=== PATIENT | female | born 1990 | race Caucasian/White ===

== ENCOUNTER 2022-03-30 11:35 | Outpatient (CLI) | payer OTHER, SELFPAY ==
--- NOTE | 2022-03-30 15:21 | PC.NURSE ---
In- 1135 Out- 1338 Reason for visit: Latch issues History: mother delivered at [facility] in [place] on 03-24-2024. She states she was an induction for high blood pressure and the vaginal delivery vacuum assisted, manual removal of placents, QBL of 1999 and she received 2 units of blood during her post- recovery period. Mothers medications are: Procardia, colace, PNV, and iron. 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 In a 24 hour period mother has attempted to latch infant to the breast 3 times and has pumped her breast 4 times with a Spectra pump. Mother denies any pain with pumping. Average amount pumped out is 25mls each session. Infant History: born at with estimated gestational age of 36 2/7 weeks old with a vacuum assisted delivery. Mother is unsure if infant was suctioned at . Infant has been bottle fed formula from . Mother states there have been 4 voids, 8 stools that are green/brown and mother confirmed some seedy looking stool. is fed 20-50 mls of Enfamil Neuro-pro every 3-3.5 hours. Observations: Mother's breast are firm. Nipples are smooth with very little protractility. Infant demonstrates big, open, wide gape at times and is unable to latch to mother's breast and pull the nipple/breast into the mouth to form a teat to maintain suction. With infant placed skin to skin on mother instinctually looks for mother's breast, attempts to latch and is unable. A nipple shield was used as a tool to teach infant to open wide, get into a rhythm of sucking, then the nipple shield removed with mother continuing the sandwich hold with her breast attempts to latch her . is unable to maintain latch. Minimal breast milk transferred from mother's breast to through with the nipple shield. After attempt to work with infant was bottle fed Enfamil 55 mls with a paced bottle feeding method and mother pumped her breast and produced minimal human milk less than 10 mls. weight: 6-15 Lowest weight: 6-6 Last weight: 6-[address] Gore's office appt. Pre-feed weight: 2889 6-5.9 Post-feed weight: Not done related to formula fed after attempting to breastfeed. Plan of Care: Mother was encouraged to increase breast stimulation with pumping to the minimum of 8 times in a 24 hour period with 1-2 times at night. Mother plans to attempt to breastfeed using the nipple shield tool, then take the shield off and attempt without the tool. Mother has been taught how to hand express, massage her breast and stretch her nipples. Mother voiced understanding to practice the techniques taught today 10-15 minutes on each breast, pumping as mentioned above encouraged giving her infant bonding, attachment and feeding supplement until she gets her human milk up to full volume. Reviewed signs of good intake/output. Mother is going to feed her the breastmilk that she pumps, then top off with formula. Follow up plans: Mother was encouraged to call for follow up questions, concerns, or to make another follow up OP appt as needs progress and change. Mother voiced understanding of when to call her ICP.
== END 2022-03-30 11:36 | disposition home or self-care (01) ==
LOC: ANHOBOP 11:40
PROVIDERS: PCP Pediatrics; Visit Provider Pediatrics
DX: Z39.1 Encounter for care and examination of lactating mother (principal)
CPT/HCPCS: 99204; G0463

== ENCOUNTER 2023-10-14 08:40 | Emergency (ER) | payer OTHER, SELFPAY ==
[2023-10-14 09:00] VITALS: BP 109/74; PULSE 64; RESP 18; TEMP 36.6; O2SAT 100
--- NOTE | 2023-10-14 09:10 | ED.FEMALEGU ---
HPI - Female Genitourinary General Chief complaint: Urogenital-Female Stated complaint: uti symptoms Time Seen by Provider: 10/14/23 09:11 Source: patient Mode of arrival: ambulatory Limitations: no limitations History of Present Illness HPI Narrative: 33-year-old female presents with complaint of dysuria 2 days. Afebrile. Taking [id number] azo. Last azo dose was yesterday. Denies urgency, frequency, hematuria. Denies , last menstrual period 2 weeks ago. All systems reviewed and negative except as noted above. Related Data Allergies Allergy/AdvReac Type Severity Reaction Status Date / Time cefaclor [From [facility]] Allergy Unknown Verified 10/14/23 09:05 Review of Systems Review of Systems: CONSTITUTIONAL: Denies fever, chills, or sweats. EYES: Denies visual changes, redness, or discharge. ENT: Denies rhinorrhea, congestion, sore throat, or otalgia. CARDIOVASCULAR: Denies chest pain, palpitations, or edema. RESPIRATORY: Denies cough or dyspnea. GASTROINTESTINAL: Denies abdominal pain, nausea, vomiting, or diarrhea. GENITOURINARY: Reports dysuria. Denies hematuria. SKIN: Denies rash or itching. MUSCULOSKELETAL: Denies back pain, joint pain, or myalgia. NEUROLOGIC: Denies headache, numbness, or weakness. PSYCHIATRIC: Denies anxiety or depression. All other systems reviewed are negative, except as documented in HPI. PMFSH Comments At time of signature, agree with nursing past medical, surgical, social and family history. There is no relevant family history pertinent to the presenting complaint. Exam Narrative: GENERAL: This is a well-nourished, well-developed patient, in no apparent distress. HEAD: normocephalic, atraumatic. EYES: PERRL. Sclera clear/white. Vision is grossly intact. EARS: External ears normal NOSE: External nose normal NECK: Neck supple, non-tender without lymphadenopathy, masses or thyromegaly. CARDIOVASCULAR: Regular rate and rhythm without murmurs, gallops, or rubs. RESPIRATORY: Clear to auscultation. Breath sounds equal bilaterally. No wheezes, rales, or rhonchi. SKIN: warm, Dry, intact with no suspicious lesions or rash, good texture and turgor. NEURO: awake, alert, and oriented to person, place and time. There were no obvious focal neurologic abnormalities. EXTREMITIES: No joint tenderness, effusion, or edema noted. Course Course Level of Care: Express Care Visit Vital Signs Vital signs: Vital Signs Temperature 36.6 C 10/14/23 09:00 Pulse Rate 64 10/14/23 09:00 Respiratory Rate 18 10/14/23 09:00 Blood Pressure 109/74 10/14/23 09:00 Pulse Oximetry 100 10/14/23 09:00 Oxygen Delivery Room Air 10/14/23 09:00 Temperature 36.6 C 10/14/23 09:00 Pulse Rate 64 10/14/23 09:00 Respiratory Rate 18 10/14/23 09:00 Blood Pressure 109/74 10/14/23 09:00 Pulse Oximetry 100 10/14/23 09:00 Oxygen Delivery Room Air 10/14/23 09:00 reviewed MDM - Female Genitourinary MDM Narrative Medical decision making narrative: Patient is aware of diagnosis, understands and agrees to treatment plan. Anticipatory guidance given. Patient agrees to follow-up as directed and is aware of reasons to seek care at the emergency department. Portions of this record may have been created with voice recognition software positive leukocytes, nitrites, blood. Will treat with antibiotic for urinary tract infection. Nontoxic. Differential Diagnosis Differential diagnosis: Likely urinary tract infection Lab Data Labs: Urine Glucose Negative Reference Range: Negative Urine Bilirubin 1+ Reference Range: Negative Urine Ketone Trace Reference Range: Negative Urine Specific [place] 1.020
== END 2023-10-14 09:24 | disposition home or self-care (01) ==
PROVIDERS: Emergency Provider Nurse Practitioner Family; PCP Family Medicine
DX: N39.0 Urinary tract infection, site not specified (principal); B96.20 Unspecified Escherichia coli [E. coli] as the cause of diseases classified elsewhere
CPT/HCPCS: 81003; 87077; 87086; 87088; 87186; 99213; G0463